=== PATIENT | female | born 1950 | race Caucasian/White ===

== ENCOUNTER 2020-07-07 19:50 | Emergency (ER) | payer OTHER ==
--- NOTE | 2020-07-07 20:03 | PDOC ---
Rapid Medical Evaluation Time Seen by Provider: 07/07/20 19:54 Medical Evaluation: 07/07/20 19:55 I have performed a brief in-person evaluation of this patient The patient presents with a chief complaint of: palpitations x several days, no SOB, CP or syncope. H/o Afib on coumadin (recent INR 2.2), HTN, HLD, pre-DM. Pt also c/o L sided LACY w/ "fuzzy vision" today, since improved. No focal weakness or sensory changes. States HAs are chronic in nature and that LACY today c/w her usual headaches but states she saw her opthalmologist today, who for unclear reasons, sent pt to ER to r/o CVA. Has never been eval by neuro for her HAs but self dx w/ migraine Pertinent physical exam findings:stable, well daniel, in NAD, non-focal I have ordered the following:ekg/labs The patient will proceed to the ED for further evaluation Discharge Disposition - Diagnosis Palpitations - Referrals Referrals: Gladys Stephens MD [Primary Care Provider] - - Patient Instructions - Post Discharge Activity
[2020-07-07 20:08] VITALS: BP 130/77; PULSE 90; TEMP 98.3; BMI 33.6
--- OUTSIDE RECORDS SUMMARY | 2020-07-07 20:26 | XMS ---
:1950 Author Organization [facility] Support Name Relationship Address Phone [facility] [employer] Unavailable [address] [phone] [place] [address] [employer] Unavailable [address] [place] [address] PENELOPE ANDERSON SISTER [address] [phone] [place] [address] Re-disclosure Warning The records that you are about to access may contain information from federally- assisted alcohol or drug abuse programs. If such information is present, then the following federally mandated warning applies: This information has been disclosed to you from records protected by federal confidentiality rules (42 CFR part 2). The federal rules prohibit you from making any further disclosure of this information unless further disclosure is expressly permitted by the written consent of the person to whom it pertains or as otherwise permitted by 42 CFR part 2. A general authorization for the release of medical or other information is NOT sufficient for this purpose. The Federal rules restrict any use of the information to criminally investigate or prosecute any alcohol or drug abuse patient.The records that you are about to access may contain highly sensitive health information, the redisclosure of which is protected by Article 27-F of the [facility] Public Health law. If you continue you may haveaccess to information: Regarding HIV / AIDS; Provided by facilities licensed or operated by the [facility] Office of Mental Health; or Provided by the [facility] Office for People With Developmental Disabilities. If such information is present, then the following [facility] mandated warning applies: This information has been disclosed to you from confidential records which are protected by state law. State law prohibits you from making any further disclosure of this information without the specific written consent of the person to whom it pertains, or as otherwise permitted by law. Any unauthorized further disclosure in violation of state law may result in a fine or fci sentence or both. A general authorization for the release of medical or other information is NOT sufficient authorization for further disclosure. Insurance Providers Payer name Policy type / Policy ID Covered Covered democrat's Policy Plan Coverage type democrat ID relationship to [employer] Information fon[employer]a R [id number]
--- NOTE | 2020-07-07 21:23 | PDOC ---
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 to rule out TIA versus intracranial abnormality with recent history of visual changes not explained on ophthalmological exam During initial evaluation patient who is alert and oriented x4 states that she does not want to stay in the hospital and is refusing CT scan of the brain as well as admission for MRI in the morning Patient states she is afraid of the machines and will follow up with a neurologist as an outpatient She is aware that her evaluation is incomplete and she may have undiagnosed conditions that if untreated promptly can result in complications including but not limited to permanent disability or Discharge - Discharge Information Problems reviewed: Yes Clinical Impression/Diagnosis: Visual disturbance - Follow up/Referral Referrals: Gladys Stephens MD [Primary Care Provider] - - Patient Discharge Instructions - Post Discharge Activity
[2020-07-07 21:27] LABS: BASO % 1.5 % (0-2.0); EOS % 1.2 % (0-4.5); HEMATOCRIT 37.2 % (32.4-45.2); HEMOGLOBIN 12.6 GM/dL (10.7-15.3); LYMPH % 30.1 % (8-40); MCH 34.5 pg (25.7-33.7); MCHC 33.9 g/dl (32.0-36.0); MEAN CELL VOLUME 101.7 fl (80-96); MONO % 5.2 % (3.8-10.2); PLATELET COUNT 187 K/MM3 (134-434); RBC 3.65 M/mm3 (3.60-5.2); RDW 14.8 % (11.6-15.6); WHITE BLOOD COUNT 6.8 K/mm3 (4.0-10.0)
[2020-07-07 22:11] LABS: ALBUMIN 3.5 g/dl (3.4-5.0); ALK PHOS 75 U/L (45-117); BLOOD UREA NITROGEN 22.9 mg/dL (7-18); CALCIUM 9.5 mg/dL (8.5-10.1); CHLORIDE 106 mmol/L (98-107); CO2 30 mmol/L (21-32); GLUCOSE,RANDOM 95 mg/dL (74-106); SGOT/AST 16 U/L (15-37); SGPT/ALT 37 U/L (13-61)
--- NOTE | 2020-07-07 22:16 | PDOC ---
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 Per provider note sent with her: "07/07/20, Dear doctors, left sided headache with di sequibirium, fuzzy vision OS (only) with Left ptosis andd miosis - episode began today- had one other episode few weeks ago. lasted ~1 day. Please r/o vascular phenomena including TIA, etc. Talked with her doctor (Dr. 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 The last time she had one was about ten years ago. Does not take anything for migraine and does not follow with a neurologist. No fevers, chills, chest pain, or shortness of breath. PCP: Dr. Stephens Meter Reader Chief: Dr. Benítez ROS: Constitutional: no fever, no chills HEENT: no throat pain, no dysphagia Cardiovascular: no chest pain, no palpitations Respiratory: no cough, no shortness of breath Gastrointestinal: no abdominal pain, no nausea Genitourinary: no dysuria, no hematuria Musculoskeletal: no myalgia, no arthralgia Skin: no rash, no itching Neurologic: +headache, no weakness Psych: no agitation, no anxiety PE: General: Awake, alert, and fully oriented, in no acute distress Head: No signs of trauma Eyes: EOMI, sclera anicteric ENT: Moist mucus membranes Neck: Normal ROM, supple Lungs: Lungs clear, Normal breath sounds Cardio: Regular rhythm, S1 and S2 present Abdomen: Soft, nontender. No guarding, no rebound, no masses Extremities: Normal range of motion, Distal pulses present Skin: Warm, Dry, normal turgor Neurologic: Cranial nerves II through XII intact. Normal speech, sensation, strength, coordination, and gait. ED Course/MDM: DDX including but not limited to CVA/TIA, anemia, metabolic derangement Labs, EKG, CXR Head CT Admission for r/o stroke 07/07/20 22:14 EKG: rate 83, QTc 467, afib, twi in V2/V3, no prior ekg available for comparison Patient refused to wait for lab work to return. Refused CT head and admission. States she would prefer to follow-up with neurology outpatient. Patient is of sound mind and has capacity to make decisions. Benefits/risks explained to patient and she voiced understanding. Patient decided to leave against medical advice. Signed AMA form. CBC WBC 6.8 K/mm3 (4.0-10.0) 07/07/20 20:20 RBC 3.65 M/mm3 (3.60-5.2) 07/07/20 20:20 Hgb 12.6 GM/dL (10.7-15.3) 07/07/20 20:20 Hct 37.2 % (32.4-45.2) 07/07/20 20:20 MCV 101.7 fl (80-96) H 07/07/20 20:20 MCH 34.5 pg (25.7-33.7) H 07/07/20 20:20 MCHC 33.9 g/dl (32.0-36.0) 07/07/20 20:20 RDW 14.8 % (11.6-15.6) 07/07/20 20:20 Plt Count 187 K/MM3 (134-434) 07/07/20 20:20 MPV 8.0 fl (7.5-11.1) 07/07/20 20:20 Absolute Neuts (auto) 4.2 K/mm3 (1.5-8.0) 07/07/20 20:20 Neutrophils % 62.0 % (42.8-82.8) 07/07/20 20:20 Lymphocytes % 30.1 % (8-40) 07/07/20 20:20 Monocytes % 5.2 % (3.8-10.2) 07/07/20 20:20 Eosinophils % 1.2 % (0-4.5) 07/07/20 20:20 Basophils % 1.5 % (0-2.0) 07/07/20 20:20 Nucleated RBC % 0 % (0-0) 07/07/20 20:20 No leukocytosis or anemia CMP Sodium 139 mmol/L (136-145) 07/07/20 20:20 Potassium 4.0 mmol/L (3.5-5.1) 07/07/20 20:20 Chloride 106 mmol/L (98-107) 07/07/20 20:20 Carbon Dioxide 30 mmol/L (21-32) 07/07/20 20:20 Anion Gap 3 MMOL/L (8-16) L 07/07/20 20:20 BUN 22.9 mg/dL (7-18) H 07/07/20 20:20 Creatinine 1.1 mg/dL (0.55-1.3) 07/07/20 20:20 Est GFR (CKD-EPI)AfAm 58.09 07/07/20 20:20 Est GFR (CKD-EPI)NonAf 50.12 07/07/20 20:20 Random Glucose 95 mg/dL (74-106) 07/07/20 20:20 Calcium 9.5 mg/dL (8.5-10.1) 07/07/20 20:20 Total Bilirubin 1.0 mg/dL (0.2-1) 07/07/20 20:20 AST 16 U/L (15-37) 07/07/20 20:20 ALT 37 U/L (13-61) 07/07/20 20:20 Alkaline Phosphatase 75 U/L (45-117) 07/07/20 20:20 Creatine Kinase 83 U/L (26-192) 07/07/20 20:20 Troponin I < 0.02 ng/ml (0.00-0.05) 07/07/20 20:20 Total Protein 8.8 g/dl (6.4-8.2) H 07/07/20 20:20 Albumin 3.5 g/dl (3.4-5.0) 07/07/20 20:20 Electrolytes unremarkable Cr normal No transaminitis Tpn undetectable 07/08/20 02:48 Past History - Medical History Cardiac Disorders: Yes (AFIB) COPD: No HTN: Yes Hypercholesterolemia: Yes - Psycho-Social/Smoking History Smoking History: Never smoked - Substance Abuse Hx (Audit-C & DAST Scrn) How often the patient has a drink containing alcohol: Never Score: In Men: 4 or > Positive; In Women: 3 or > Positive: 0 Screen Result (Pos requires Nsg. Audit-10AR): Negative *Physical Exam - Vital Signs Last Vital Signs Temp Pulse Resp BP Pulse Ox 98.3 F 90 20 130/77 97 07/07/20 19:56 07/07/20 19:56 07/07/20 19:56 07/07/20 19:56 07/07/20 19:56 ED Treatment Course - LABORATORY CBC & Chemistry Diagram: 07/07/20 20:20 07/07/20 20:20 - ADDITIONAL ORDERS Additional order review: Laboratory Results 07/07/20 20:20 Potassium 4.0 Chloride 106 Carbon Dioxide 30 BUN 22.9 H Random Glucose 95 Calcium 9.5 Total Bilirubin 1.0 AST 16 ALT 37 Alkaline Phosphatase 75 Albumin 3.5 07/07/20 20:20 RBC 3.65 MCV 101.7 H MCHC 33.9 RDW 14.8 MPV 8.0 Neutrophils % 62.0 Lymphocytes % 30.1 Monocytes % 5.2 Eosinophils % 1.2 Basophils % 1.5 - RADIOLOGY Radiology Studies Ordered: Category Date Time Status HEAD CT WITHOUT CONTRAST [CT] Stat CT Scan 07/07/20 21:20 Ordered CHEST X-RAY PORTABLE* [RAD] Stat Radiology 07/07/20 21:20 Ordered Discharge - Discharge Information Problems reviewed: Yes Clinical Impression/Diagnosis: Visual disturbance, Vision changes, Left against medical advice Condition: Guarded Disposition: AGAINST MEDICAL ADVICE - Follow up/Referral Referrals: Gladys Stephens MD [Primary Care Provider] - - Patient Discharge Instructions Additional Instructions: As discussed you may have undiagnosed illness or medical diagnosis that if left untreated can lead to multiple complications including, but not limited to permanent disability and . Should you reconsider you should return to the emergency department for evaluation. - Post Discharge Activity
[2020-07-07 22:20] LABS: ANION GAP 3 MMOL/L (8-16); CREATININE 1.1 mg/dL (0.55-1.3); SODIUM 139 mmol/L (136-145); TOT PROT 8.8 g/dl (6.4-8.2)
--- NOTE | 2020-07-08 09:04 | EKG ---
Test Reason : Blood Pressure : / mmHG Vent. Rate : 083 BPM Atrial Rate : 075 BPM P-R Int : 000 ms QRS Dur : 082 ms QT Int : 398 ms P-R-T Axes : 000 074 035 degrees QTc Int : 467 ms ATRIAL FIBRILLATION T WAVE ABNORMALITY, CONSIDER ANTERIOR ISCHEMIA ABNORMAL ECG WHEN COMPARED WITH ECG OF 27-MAY-2010 22:54, T WAVE INVERSION NOW EVIDENT IN ANTERIOR LEADS Confirmed by MD TOMMY, BERNARD ([id number]) on 07/08/2020 9:04:28 AM Referred By: Confirmed By:BERNARD SANDERS MD
== END 2020-07-07 22:52 | disposition left against medical advice (07) ==
LOC: JER 19:50
DX: H53.8 Other visual disturbances (principal); R00.2 Palpitations
CPT/HCPCS: 36415; 80053; 82550; 84484; 85025; 93005; 93010; 99282-25

== ENCOUNTER 2020-12-27 22:01 | Inpatient (IN) | payer OTHER ==
[2020-12-27 22:19] VITALS: BMI 30.1
[2020-12-27] MEDS ORDERED: SODIUM CHLORIDE 0.9% 500 ML INFUS.BAG IV ONE (22:43)
[2020-12-27 22:59] LABS: BASO % 0.9 % (0-2.0); EOS % 1.4 % (0-4.5); HEMATOCRIT 31.1 % (32.4-45.2); HEMOGLOBIN 10.7 GM/dL (10.7-15.3); LYMPH % 27.9 % (8-40); MCH 35.6 pg (25.7-33.7); MCHC 34.4 g/dl (32.0-36.0); MEAN CELL VOLUME 103.5 fl (80-96); MEAN PLT VOLUME 8.1 fl (7.5-11.1); NEUT % 57.8 % (42.8-82.8); PLATELET COUNT 113 K/MM3 (134-434); RBC 3.01 M/mm3 (3.60-5.2); RDW 16.9 % (11.6-15.6); WHITE BLOOD COUNT 7.2 K/mm3 (4.0-10.0)
[2020-12-27 23:12] LABS: ACTIVATED PTT 59.1 SECONDS (25.2-36.5)
[2020-12-27 23:22] LABS: CHLORIDE 98 mmol/L (98-107); SODIUM 135 mmol/L (136-145)
[2020-12-27 23:25] LABS: ALBUMIN 2.2 g/dl (3.4-5.0); ANION GAP 7 MMOL/L (8-16); BLOOD UREA NITROGEN 52.9 mg/dL (7-18); CO2 31 mmol/L (21-32); GLUCOSE,RANDOM 88 mg/dL (74-106); MAGNESIUM 2.1 mg/dL (1.8-2.4)
[2020-12-27 23:28] LABS: CREATININE 3.7 mg/dL (0.55-1.3); PHOSPHOROUS 5.7 mg/dL (2.5-4.9); SGOT/AST 49 U/L (15-37); SGPT/ALT 21 U/L (13-61)
[2020-12-27 23:29] LABS: BILIRUBIN,TOTAL 0.9 mg/dL (0.2-1)
[2020-12-27 23:30] LABS: TOT PROT 10.9 g/dl (6.4-8.2)
[2020-12-27 23:31] LABS: ALK PHOS 52 U/L (45-117)
[2020-12-27 23:39] LABS: PROTHROMBIN TIME (PATIENT) 122.3 SEC (9.7-13.0)
[2020-12-27 23:40] LABS: INR 10.65 (0.83-1.09)
[2020-12-27] MEDS ORDERED: PHYTONADIONE 5 MG TABLET PO ONE (23:43)
[2020-12-27] MEDS ORDERED: LACTATED RINGERS SOLUTION 1,000 ML/1,000 ML INFUS.BAG IV SCH (23:45)
[2020-12-27 23:51] LABS: ANISOCYTOSIS 1+; OVALOCYTE 1+; PLATELET ESTIMATE DECREASED
[2020-12-27] MEDS ORDERED: PHYTONADIONE 5 MG TABLET ONE (23:55)
[2020-12-28 00:10] LABS: CALCIUM 16.3 mg/dL (8.5-10.1)
[2020-12-28 01:21] LABS: LIPASE 280 U/L (73-393)
[2020-12-28] MEDS: LACTATED RINGERS SOLUTION 1,000 ML/1,000 ML INFUS.BAG IV SCH (01:31)
[2020-12-28] MEDS ORDERED: CALCITONIN - SALMON SYNTHETIC 400 UNIT/2 ML VIAL IM ONE (01:57)
[2020-12-28 02:02] LABS: EPI CELLS 22 /uL (0-25.1); HYALINE CASTS 2 /uL (0-3.1); URINE APPEARANCE CLOUDY; URINE BACTERIA 19 /uL (0-1359); URINE BILIRUBIN NEGATIVE (NEGATIVE); URINE COLOR YELLOW; URINE GLUCOSE (UA) NEGATIVE (NEGATIVE); URINE KETONE NEGATIVE (NEGATIVE); URINE LEUK ESTERASE NEGATIVE (NEGATIVE); URINE NITRITE NEGATIVE (NEGATIVE); URINE PROTEIN 1+ (NEGATIVE); URINE RBC 4 /uL (0-23.9); URINE UROBILINOGEN 0.2 mg/dL (0.2-1.0); URINE WBC 44 /uL (0-25.8)
[2020-12-28] MEDS ORDERED: ACETAMINOPHEN 325 MG TABLET (FP) PO PRN (02:52)
[2020-12-28 02:57] LABS: ALBUMIN 1.9 g/dl (3.4-5.0); BLOOD UREA NITROGEN 49.1 mg/dL (7-18); MAGNESIUM 1.8 mg/dL (1.8-2.4)
[2020-12-28 03:00] LABS: CREATININE 3.4 mg/dL (0.55-1.3); PHOSPHOROUS 5.4 mg/dL (2.5-4.9)
[2020-12-28 03:01] LABS: BILIRUBIN,TOTAL 0.8 mg/dL (0.2-1); TOT PROT 9.6 g/dl (6.4-8.2)
[2020-12-28 03:13] LABS: CALCIUM 15.3 mg/dL (8.5-10.1)
[2020-12-28 03:28] LABS: PROTHROMBIN TIME (PATIENT) 127.8 SEC (9.7-13.0)
[2020-12-28 03:29] LABS: INR 11.5 (0.83-1.09)
[2020-12-28] MEDS: LACTATED RINGERS SOLUTION 1,000 ML IV SCH ×2 (03:56→12:43)
[2020-12-28 07:59] LABS: HEMATOCRIT 27.2 % (32.4-45.2); HEMOGLOBIN 9.4 GM/dL (10.7-15.3); MCH 35.8 pg (25.7-33.7); MCHC 34.5 g/dl (32.0-36.0); MEAN CELL VOLUME 103.8 fl (80-96); MEAN PLT VOLUME 7.5 fl (7.5-11.1); PLATELET COUNT 103 K/MM3 (134-434); RBC 2.62 M/mm3 (3.60-5.2); RDW 17.1 % (11.6-15.6); WHITE BLOOD COUNT 7.1 K/mm3 (4.0-10.0)
[2020-12-28 08:50] LABS: CHLORIDE 101 mmol/L (98-107); SODIUM 137 mmol/L (136-145)
[2020-12-28 08:53] LABS: ANION GAP 7 MMOL/L (8-16); BLOOD UREA NITROGEN 47.6 mg/dL (7-18); CO2 29 mmol/L (21-32); GLUCOSE,RANDOM 93 mg/dL (74-106); MAGNESIUM 1.9 mg/dL (1.8-2.4)
[2020-12-28 08:56] LABS: CREATININE 3.3 mg/dL (0.55-1.3); SGOT/AST 31 U/L (15-37); SGPT/ALT 19 U/L (13-61)
[2020-12-28 08:57] LABS: BILIRUBIN,TOTAL 0.8 mg/dL (0.2-1); PHOSPHOROUS 5.3 mg/dL (2.5-4.9)
[2020-12-28 08:58] LABS: TOT PROT 9.9 g/dl (6.4-8.2)
[2020-12-28 08:59] LABS: ALK PHOS 51 U/L (45-117)
[2020-12-28 09:26] LABS: CALCIUM 15.6 mg/dL (8.5-10.1)
[2020-12-28 09:36] LABS: INR 9.5 (0.83-1.09)
[2020-12-28 09:38] LABS: PROTHROMBIN TIME (PATIENT) 107.7 SEC (9.7-13.0)
[2020-12-28] MEDS: MORPHINE SULFATE 2 MG/ML VIAL IVPUSH PRN ×2 (10:41→14:52)
[2020-12-28] MEDS ORDERED: POTASSIUM CHLORIDE ORAL LIQUID 20 MEQ/15 ML PO ONE ×2 (12:30→16:03)
[2020-12-28] MEDS ORDERED: DENOSUMAB 120 MG/1.7 ML VIAL SQ ONE (13:16)
[2020-12-28] MEDS ORDERED: DOCUSATE SODIUM 100 MG CAPSULE (FP) PO PRN (14:04)
[2020-12-28] MEDS ORDERED: SENNOSIDES 8.6MG TABLET (FP) PO PRN (14:04)
[2020-12-28] MEDS ORDERED: DOCUSATE SODIUM 100 MG CAPSULE (FP) PO ONE (14:05)
[2020-12-28] MEDS ORDERED: SENNOSIDES 8.6MG TABLET (FP) PO ONE (14:06)
[2020-12-28 15:39] LABS: ALBUMIN 1.9 g/dl (3.4-5.0); BLOOD UREA NITROGEN 47.5 mg/dL (7-18)
[2020-12-28 15:42] LABS: CREATININE 3.3 mg/dL (0.55-1.3)
[2020-12-28 15:44] LABS: CALCIUM 15.6 mg/dL (8.5-10.1)
[2020-12-28] MEDS: CALCITONIN - SALMON SYNTHETIC 400 UNIT/2 ML VIAL IM SCH ×2 (22:11)
[2020-12-29] MEDS: MORPHINE SULFATE 2 MG/ML VIAL IVPUSH PRN (03:21)
[2020-12-29] MEDS: LACTATED RINGERS SOLUTION 1,000 ML/1,000 ML INFUS.BAG IV SCH (04:08)
[2020-12-29] MEDS: LACTATED RINGERS SOLUTION 1,000 ML IV SCH (04:14)
[2020-12-29 08:22] LABS: HEMATOCRIT 24.5 % (32.4-45.2); HEMOGLOBIN 8.4 GM/dL (10.7-15.3); MCH 35.7 pg (25.7-33.7); MCHC 34.5 g/dl (32.0-36.0); MEAN CELL VOLUME 103.7 fl (80-96); MEAN PLT VOLUME 7.5 fl (7.5-11.1); PLATELET COUNT 92 K/MM3 (134-434); RBC 2.36 M/mm3 (3.60-5.2); RDW 16.9 % (11.6-15.6); WHITE BLOOD COUNT 6.3 K/mm3 (4.0-10.0)
[2020-12-29 08:48] LABS: ALBUMIN 1.7 g/dl (3.4-5.0)
[2020-12-29 08:51] LABS: CREATININE 3.4 mg/dL (0.55-1.3)
[2020-12-29 08:52] LABS: BILIRUBIN,TOTAL 0.6 mg/dL (0.2-1); TOT PROT 9.3 g/dl (6.4-8.2)
[2020-12-29] MEDS: ATORVASTATIN CA 10 MG TABLET (FP) PO SCH (10:45)
[2020-12-29 11:08] LABS: URIC ACID 14.8 mg/dL (2.6-7.2)
[2020-12-29] MEDS ORDERED: PHYTONADIONE 5 MG TABLET PO ONE (11:15)
[2020-12-29] MEDS ORDERED: POTASSIUM CHLORIDE TABS 20 MEQ TABLET.ER (FP) PO ONE (11:15)
[2020-12-29] MEDS: CALCITONIN - SALMON SYNTHETIC 400 UNIT/2 ML VIAL IM SCH ×3 (15:23→22:29)
[2020-12-29] MEDS ORDERED: RASBURICASE 7.5 MG in SODIUM CHLORIDE 50 ML IVPB ONE (15:30)
[2020-12-29] MEDS: SODIUM CHLORIDE 0.9%/KCL 20 MEQ/1,000 ML INFUS.BAG IV SCH (22:36)
[2020-12-30] MEDS: CALCITONIN - SALMON SYNTHETIC 400 UNIT/2 ML VIAL IM SCH ×3 (06:19→22:04)
[2020-12-30] MEDS: MORPHINE SULFATE 2 MG/ML VIAL IVPUSH PRN (07:57)
[2020-12-30 08:09] LABS: BASO % 0.5 % (0-2.0); EOS % 1.1 % (0-4.5); HEMATOCRIT 23.2 % (32.4-45.2); HEMOGLOBIN 8.1 GM/dL (10.7-15.3); LYMPH % 20.6 % (8-40); MCH 36.3 pg (25.7-33.7); MCHC 34.8 g/dl (32.0-36.0); MEAN CELL VOLUME 104.2 fl (80-96); MEAN PLT VOLUME 7.7 fl (7.5-11.1); MONO % 11.7 % (3.8-10.2); NEUT % 66.1 % (42.8-82.8); PLATELET COUNT 83 K/MM3 (134-434); RBC 2.22 M/mm3 (3.60-5.2); RDW 16.9 % (11.6-15.6)
[2020-12-30 08:13] LABS: INR 2.52 (0.83-1.09); PROTHROMBIN TIME (PATIENT) 29.7 SEC (9.7-13.0)
[2020-12-30 08:32] LABS: ALBUMIN 1.7 g/dl (3.4-5.0); BLOOD UREA NITROGEN 54.6 mg/dL (7-18); MAGNESIUM 1.7 mg/dL (1.8-2.4)
[2020-12-30 08:35] LABS: CREATININE 3.9 mg/dL (0.55-1.3); PHOSPHOROUS 6.2 mg/dL (2.5-4.9)
[2020-12-30 08:36] LABS: BILIRUBIN,TOTAL 0.5 mg/dL (0.2-1); TOT PROT 9.4 g/dl (6.4-8.2)
[2020-12-30 09:15] LABS: CALCIUM 14.7 mg/dL (8.5-10.1)
[2020-12-30 09:22] LABS: ANISOCYTOSIS 1+; MACROCYTOSIS 1+; PLATELET ESTIMATE DECREASED
[2020-12-30] MEDS: ATORVASTATIN CA 10 MG TABLET (FP) PO SCH (09:56)
[2020-12-30] MEDS: DEXAMETHASONE SOD PHOSPHATE 4 MG/1 ML VIAL IVPUSH SCH ×2 (09:58→22:04)
[2020-12-30] MEDS ORDERED: MAGNESIUM SULF 50% (8.12 MEQ/2 ML-1 GM VIAL) IVPB ONE (11:11)
[2020-12-30] MEDS: SODIUM CHLORIDE 0.9%/KCL 20 MEQ/1,000 ML INFUS.BAG IV SCH (22:04)
[2020-12-31] MEDS: CALCITONIN - SALMON SYNTHETIC 400 UNIT/2 ML VIAL IM SCH (05:47)
[2020-12-31] MEDS: DEXAMETHASONE SOD PHOSPHATE 4 MG/1 ML VIAL IVPUSH SCH ×2 (09:26→22:37)
[2020-12-31] MEDS: ATORVASTATIN CA 10 MG TABLET (FP) PO SCH (09:26)
[2020-12-31 11:31] LABS: BASO % 0.4 % (0-2.0); EOS % 0.3 % (0-4.5); HEMATOCRIT 24.1 % (32.4-45.2); HEMOGLOBIN 8.1 GM/dL (10.7-15.3); LYMPH % 19.4 % (8-40); MCH 35.7 pg (25.7-33.7); MCHC 33.7 g/dl (32.0-36.0); MEAN CELL VOLUME 106.1 fl (80-96); MEAN PLT VOLUME 8.2 fl (7.5-11.1); MONO % 12.1 % (3.8-10.2); NEUT % 67.8 % (42.8-82.8); PLATELET COUNT 84 K/MM3 (134-434); RBC 2.27 M/mm3 (3.60-5.2); RDW 17.3 % (11.6-15.6); WHITE BLOOD COUNT 6.6 K/mm3 (4.0-10.0)
[2020-12-31 11:36] LABS: INR 1.78 (0.83-1.09); PROTHROMBIN TIME (PATIENT) 21.5 SEC (9.7-13.0)
[2020-12-31 11:46] LABS: CHLORIDE 111 mmol/L (98-107); SODIUM 141 mmol/L (136-145)
[2020-12-31 11:50] LABS: ALBUMIN 1.7 g/dl (3.4-5.0); ANION GAP 7 MMOL/L (8-16); BLOOD UREA NITROGEN 70.8 mg/dL (7-18); CO2 23 mmol/L (21-32); GLUCOSE,RANDOM 141 mg/dL (74-106)
[2020-12-31 11:56] LABS: MAGNESIUM 2.5 mg/dL (1.8-2.4); PHOSPHOROUS 6.3 mg/dL (2.5-4.9)
[2020-12-31 11:57] LABS: ALK PHOS 54 U/L (45-117); BILIRUBIN,TOTAL 1.1 mg/dL (0.2-1); CREATININE 4.5 mg/dL (0.55-1.3); IRON SERUM 127 ug/dL (50-175); SGOT/AST 31 U/L (15-37); SGPT/ALT 17 U/L (13-61); TOT PROT 9.9 g/dl (6.4-8.2); TOTAL IRON BINDING CAPACITY 155 ug/dL (250-450)
[2020-12-31 12:04] LABS: URIC ACID < 0.2 mg/dL (2.6-7.2)
[2020-12-31] MEDS ORDERED: SODIUM CHLORIDE 250 ML IV PRN ×2 (12:04→17:32)
[2020-12-31 12:10] LABS: ANISOCYTOSIS 2+; MACROCYTOSIS 2+; PLATELET ESTIMATE DECREASED
[2020-12-31 12:21] LABS: CALCIUM 14.8 mg/dL (8.5-10.1)
[2020-12-31] MEDS: SODIUM CHLORIDE 0.9%/KCL 20 MEQ/1,000 ML INFUS.BAG IV SCH (17:45)
[2020-12-31] MEDS: ALBUMIN HUMAN 25% 12.5 GM/50 ML VIAL IVPB SCH (18:52)
[2020-12-31] MEDS ORDERED: metoPROLOL SUCCINATE 25 MG TAB.SR.24H (FP) PO ONE (23:53)
[2021-01-01 03:15] LABS: BASO % 0.7 % (0-2.0); EOS % 0.2 % (0-4.5); HEMATOCRIT 19.7 % (32.4-45.2); LYMPH % 22.7 % (8-40); MCHC 32.8 g/dl (32.0-36.0); MEAN CELL VOLUME 106.8 fl (80-96); MONO % 23.5 % (3.8-10.2); NEUT % 52.9 % (42.8-82.8); PLATELET COUNT 91 K/MM3 (134-434); RBC 1.85 M/mm3 (3.60-5.2); RDW 16.9 % (11.6-15.6); WHITE BLOOD COUNT 9.5 K/mm3 (4.0-10.0)
[2021-01-01 03:16] LABS: HEMOGLOBIN 6.5 GM/dL (10.7-15.3)
[2021-01-01 03:22] LABS: INR 1.83 (0.83-1.09); PROTHROMBIN TIME (PATIENT) 22.1 SEC (9.7-13.0)
[2021-01-01 03:25] LABS: ACTIVATED PTT 22.4 SECONDS (25.2-36.5)
[2021-01-01 03:33] LABS: ALBUMIN 1.4 g/dl (3.4-5.0); BLOOD UREA NITROGEN 51.7 mg/dL (7-18); CALCIUM 12.9 mg/dL (8.5-10.1)
[2021-01-01 03:37] LABS: CREATININE 3.5 mg/dL (0.55-1.3)
[2021-01-01 03:38] LABS: BILIRUBIN,TOTAL 0.6 mg/dL (0.2-1); TOT PROT 8.4 g/dl (6.4-8.2)
[2021-01-01 06:29] LABS: ANISOCYTOSIS 2+; MACROCYTOSIS 0; OVALOCYTE 1+; PLATELET ESTIMATE DECREASED
[2021-01-01] MEDS ORDERED: METOPROLOL TARTRATE 5 MG/5 ML VIAL IVPUSH ONE (09:40)
[2021-01-01] MEDS: DEXAMETHASONE SOD PHOSPHATE 10 MG/1 ML VIAL IVPB SCH (10:14)
[2021-01-01] MEDS: PANTOPRAZOLE SODIUM 40 MG VIAL IVPB SCH (10:17)
[2021-01-01] MEDS: ATORVASTATIN CA 10 MG TABLET (FP) PO SCH (10:17)
[2021-01-01 13:09] LABS: ALBUMIN % 8.3 % (.); ALPHA-1 FOR UPE 1.5 % (.); TOTAL PROTEIN, URINE 104.2 mg/dL (Not Estab.)
[2021-01-01 16:03] LABS: BASO % 0.5 % (0-2.0); EOS % 0.2 % (0-4.5); HEMATOCRIT 24.4 % (32.4-45.2); HEMOGLOBIN 8.2 GM/dL (10.7-15.3); LYMPH % 18.9 % (8-40); MCH 32.9 pg (25.7-33.7); MCHC 33.7 g/dl (32.0-36.0); MEAN CELL VOLUME 97.6 fl (80-96); MEAN PLT VOLUME 7.8 fl (7.5-11.1); MONO % 21.9 % (3.8-10.2); NEUT % 58.5 % (42.8-82.8); PLATELET COUNT 77 K/MM3 (134-434); RDW 21.4 % (11.6-15.6); WHITE BLOOD COUNT 9.7 K/mm3 (4.0-10.0)
[2021-01-01 17:20] LABS: ANISOCYTOSIS 3+; MACROCYTOSIS 1+; PLATELET ESTIMATE DECREASED; TARGET CELLS 1+
[2021-01-02] MEDS ORDERED: SENNOSIDES 8.6MG TABLET (FP) PO PRN (07:40)
[2021-01-02] MEDS ORDERED: DOCUSATE SODIUM 100 MG CAPSULE (FP) PO PRN (07:40)
[2021-01-02 07:54] LABS: BASO % 0.4 % (0-2.0); EOS % 0.2 % (0-4.5); HEMATOCRIT 20.7 % (32.4-45.2); HEMOGLOBIN 7.4 GM/dL (10.7-15.3); LYMPH % 21.6 % (8-40); MCH 34.3 pg (25.7-33.7); MCHC 35.8 g/dl (32.0-36.0); MEAN CELL VOLUME 95.8 fl (80-96); MEAN PLT VOLUME 7.9 fl (7.5-11.1); MONO % 12.2 % (3.8-10.2); NEUT % 65.6 % (42.8-82.8); PLATELET COUNT 65 K/MM3 (134-434); RBC 2.16 M/mm3 (3.60-5.2); WHITE BLOOD COUNT 8.1 K/mm3 (4.0-10.0)
[2021-01-02 07:55] LABS: INR 1.65 (0.83-1.09); PROTHROMBIN TIME (PATIENT) 19.7 SEC (9.7-13.0)
[2021-01-02 08:29] LABS: ALBUMIN 1.5 g/dl (3.4-5.0); BLOOD UREA NITROGEN 43.9 mg/dL (7-18); CALCIUM 12.8 mg/dL (8.5-10.1)
[2021-01-02 08:32] LABS: CREATININE 3.3 mg/dL (0.55-1.3); PHOSPHOROUS 5.3 mg/dL (2.5-4.9); URIC ACID 1.3 mg/dL (2.6-7.2)
[2021-01-02 08:34] LABS: BILIRUBIN,TOTAL 1.1 mg/dL (0.2-1); TOT PROT 8.6 g/dl (6.4-8.2)
[2021-01-02] MEDS: PANTOPRAZOLE SODIUM 40 MG VIAL IVPB SCH (10:08)
[2021-01-02] MEDS: DEXAMETHASONE SOD PHOSPHATE 10 MG/1 ML VIAL IVPB SCH (10:09)
[2021-01-02 10:50] LABS: ANISOCYTOSIS 1+; MACROCYTOSIS 0; PLATELET ESTIMATE DECREASED; TARGET CELLS 1+
[2021-01-02] MEDS ORDERED: HEPARIN NA (PORCINE) 5,000 UNITS/ML 1ML VIAL IVPUSH PRN (19:50)
[2021-01-02] MEDS: ATORVASTATIN CA 10 MG TABLET (FP) PO SCH (21:56)
[2021-01-02] MEDS: HEPARIN INFUSION - 25,000 UNITS/500 ML INFUS.BAG IVPB SCH (22:41)
[2021-01-03 06:30] LABS: BASO % 0.4 % (0-2.0); EOS % 0.2 % (0-4.5); LYMPH % 19.1 % (8-40); MCH 33.8 pg (25.7-33.7); MCHC 34.9 g/dl (32.0-36.0); MEAN CELL VOLUME 96.9 fl (80-96); MEAN PLT VOLUME 8.1 fl (7.5-11.1); MONO % 11.6 % (3.8-10.2); NEUT % 68.7 % (42.8-82.8); PLATELET COUNT 72 K/MM3 (134-434); RBC 2.06 M/mm3 (3.60-5.2); RDW 20.6 % (11.6-15.6); WHITE BLOOD COUNT 11.1 K/mm3 (4.0-10.0)
[2021-01-03 06:47] LABS: INR 1.51 (0.83-1.09); PROTHROMBIN TIME (PATIENT) 18.4 SEC (9.7-13.0)
[2021-01-03 06:50] LABS: ACTIVATED PTT 45.4 SECONDS (25.2-36.5)
[2021-01-03] MEDS: HEPARIN NA (PORCINE) 5,000 UNITS/ML 1ML VIAL IVPUSH PRN ×2 (06:59→14:51)
[2021-01-03 07:31] LABS: ALBUMIN 1.6 g/dl (3.4-5.0); BLOOD UREA NITROGEN 66.4 mg/dL (7-18); CALCIUM 13.3 mg/dL (8.5-10.1); MAGNESIUM 2.2 mg/dL (1.8-2.4)
[2021-01-03 07:33] LABS: CREATININE 4.7 mg/dL (0.55-1.3)
[2021-01-03 07:34] LABS: PHOSPHOROUS 7.2 mg/dL (2.5-4.9)
[2021-01-03 07:35] LABS: BILIRUBIN,TOTAL 0.7 mg/dL (0.2-1); TOT PROT 8.8 g/dl (6.4-8.2)
[2021-01-03 09:20] LABS: ANISOCYTOSIS 1+; MACROCYTOSIS 1+; PLATELET ESTIMATE DECREASED
[2021-01-03] MEDS: PANTOPRAZOLE SODIUM 40 MG VIAL IVPB SCH (10:29)
[2021-01-03] MEDS: DEXAMETHASONE SOD PHOSPHATE 10 MG/1 ML VIAL IVPB SCH (10:29)
[2021-01-03] MEDS: HEPARIN INFUSION - 25,000 UNITS/500 ML INFUS.BAG IVPB SCH (22:19)
[2021-01-03] MEDS: ATORVASTATIN CA 10 MG TABLET (FP) PO SCH (22:19)
[2021-01-04 08:04] LABS: BASO % 0.3 % (0-2.0); EOS % 0.4 % (0-4.5); LYMPH % 17.8 % (8-40); MCH 33.5 pg (25.7-33.7); MCHC 33.9 g/dl (32.0-36.0); MEAN CELL VOLUME 98.9 fl (80-96); MEAN PLT VOLUME 8.4 fl (7.5-11.1); MONO % 18.8 % (3.8-10.2); NEUT % 62.7 % (42.8-82.8); PLATELET COUNT 81 K/MM3 (134-434); RBC 1.82 M/mm3 (3.60-5.2); RDW 19.7 % (11.6-15.6); WHITE BLOOD COUNT 17.1 K/mm3 (4.0-10.0)
[2021-01-04 08:11] LABS: BLOOD UREA NITROGEN 89.4 mg/dL (7-18); CALCIUM 13.1 mg/dL (8.5-10.1); MAGNESIUM 2.3 mg/dL (1.8-2.4)
[2021-01-04 08:12] LABS: ALBUMIN 1.6 g/dl (3.4-5.0)
[2021-01-04 08:13] LABS: URIC ACID 3.9 mg/dL (2.6-7.2)
[2021-01-04 08:14] LABS: CREATININE 5.9 mg/dL (0.55-1.3)
[2021-01-04 08:15] LABS: PHOSPHOROUS 7.6 mg/dL (2.5-4.9)
[2021-01-04 08:16] LABS: TOT PROT 8.9 g/dl (6.4-8.2)
[2021-01-04 08:17] LABS: BILIRUBIN,TOTAL 0.6 mg/dL (0.2-1)
[2021-01-04 08:23] LABS: HEMOGLOBIN 6.1 GM/dL (10.7-15.3)
[2021-01-04] MEDS: DEXAMETHASONE SOD PHOSPHATE 10 MG/1 ML VIAL IVPB SCH (12:37)
[2021-01-04] MEDS: PANTOPRAZOLE SODIUM 40 MG VIAL IVPB SCH (12:38)
[2021-01-04 14:00] LABS: ANISOCYTOSIS 1+; MACROCYTOSIS 0; PLATELET ESTIMATE DECREASED
[2021-01-04] MEDS ORDERED: SODIUM CHLORIDE 250 ML IV PRN (17:27)
[2021-01-04 20:53] LABS: MCH 33.8 pg (25.7-33.7); MCHC 35.2 g/dl (32.0-36.0); MEAN PLT VOLUME 12.3 fl (7.5-11.1); RBC 1.98 M/mm3 (3.60-5.2); RDW 18.5 % (11.6-15.6); WHITE BLOOD COUNT 12.4 K/mm3 (4.0-10.0)
[2021-01-04 20:56] LABS: HEMOGLOBIN 6.7 GM/dL (10.7-15.3)
[2021-01-04] MEDS: ATORVASTATIN CA 10 MG TABLET (FP) PO SCH (21:37)
[2021-01-04 23:09] LABS: PLATELET COUNT 25 K/MM3 (134-434)
[2021-01-05 01:16] LABS: INR 1.67 (0.83-1.09); PROTHROMBIN TIME (PATIENT) 20.2 SEC (9.7-13.0)
[2021-01-05 01:18] LABS: ACTIVATED PTT 30.3 SECONDS (25.2-36.5)
[2021-01-05 07:20] LABS: HEMATOCRIT 23.1 % (32.4-45.2); MCH 32.5 pg (25.7-33.7); MCHC 34.7 g/dl (32.0-36.0); MEAN CELL VOLUME 93.7 fl (80-96); MEAN PLT VOLUME 7.9 fl (7.5-11.1); PLATELET COUNT 73 K/MM3 (134-434); RBC 2.47 M/mm3 (3.60-5.2); RDW 18.6 % (11.6-15.6); WHITE BLOOD COUNT 13.9 K/mm3 (4.0-10.0)
[2021-01-05 07:42] LABS: ALBUMIN 1.6 g/dl (3.4-5.0)
[2021-01-05 07:43] LABS: MAGNESIUM 2.2 mg/dL (1.8-2.4)
[2021-01-05 07:45] LABS: PHOSPHOROUS 5.8 mg/dL (2.5-4.9); URIC ACID 3.4 mg/dL (2.6-7.2)
[2021-01-05 07:46] LABS: CREATININE 4.1 mg/dL (0.55-1.3)
[2021-01-05 07:47] LABS: BILIRUBIN,TOTAL 0.8 mg/dL (0.2-1); TOT PROT 8.9 g/dl (6.4-8.2)
[2021-01-05 08:08] LABS: BLOOD UREA NITROGEN 53.4 mg/dL (7-18); CALCIUM 10.8 mg/dL (8.5-10.1)
[2021-01-05] MEDS: PANTOPRAZOLE SODIUM 40 MG VIAL IVPB SCH (09:48)
[2021-01-05] MEDS: DEXAMETHASONE SOD PHOSPHATE 10 MG/1 ML VIAL IVPB SCH (09:49)
[2021-01-05] MEDS: ATORVASTATIN CA 10 MG TABLET (FP) PO SCH (21:36)
[2021-01-06 08:11] LABS: BASO % 0.3 % (0-2.0); EOS % 0.2 % (0-4.5); HEMATOCRIT 20.8 % (32.4-45.2); HEMOGLOBIN 7.2 GM/dL (10.7-15.3); LYMPH % 15.6 % (8-40); MCH 32.7 pg (25.7-33.7); MCHC 34.5 g/dl (32.0-36.0); MEAN CELL VOLUME 94.7 fl (80-96); MEAN PLT VOLUME 7.9 fl (7.5-11.1); MONO % 10.9 % (3.8-10.2); PLATELET COUNT 65 K/MM3 (134-434); RDW 18.6 % (11.6-15.6); WHITE BLOOD COUNT 12.2 K/mm3 (4.0-10.0)
[2021-01-06 08:42] LABS: ALBUMIN 1.6 g/dl (3.4-5.0)
[2021-01-06 08:43] LABS: BLOOD UREA NITROGEN 75.3 mg/dL (7-18); CALCIUM 10.9 mg/dL (8.5-10.1); MAGNESIUM 2.2 mg/dL (1.8-2.4)
[2021-01-06 08:45] LABS: CREATININE 5.5 mg/dL (0.55-1.3)
[2021-01-06 08:46] LABS: PHOSPHOROUS 7.1 mg/dL (2.5-4.9); TOT PROT 8.6 g/dl (6.4-8.2)
[2021-01-06 08:48] LABS: BILIRUBIN,TOTAL 0.5 mg/dL (0.2-1)
[2021-01-06] MEDS: PANTOPRAZOLE SODIUM 40 MG VIAL IVPB SCH (10:08)
[2021-01-06 10:55] LABS: ANISOCYTOSIS 1+; MACROCYTOSIS 0; PLATELET ESTIMATE DECREASED
[2021-01-06 12:04] LABS: INR 1.45 (0.83-1.09); PROTHROMBIN TIME (PATIENT) 17.7 SEC (9.7-13.0)
[2021-01-06] MEDS ORDERED: SODIUM CHLORIDE 250 ML IV PRN (13:51)
[2021-01-06] MEDS: ATORVASTATIN CA 10 MG TABLET (FP) PO SCH (21:51)
[2021-01-07 07:19] LABS: BASO % 0.4 % (0-2.0); EOS % 0.3 % (0-4.5); HEMATOCRIT 23.9 % (32.4-45.2); HEMOGLOBIN 8.3 GM/dL (10.7-15.3); LYMPH % 11.7 % (8-40); MCH 32.5 pg (25.7-33.7); MCHC 34.7 g/dl (32.0-36.0); MEAN CELL VOLUME 93.8 fl (80-96); MEAN PLT VOLUME 7.8 fl (7.5-11.1); MONO % 22.5 % (3.8-10.2); NEUT % 65.1 % (42.8-82.8); PLATELET COUNT 67 K/MM3 (134-434); RBC 2.55 M/mm3 (3.60-5.2); RDW 17.1 % (11.6-15.6); WHITE BLOOD COUNT 13.4 K/mm3 (4.0-10.0)
[2021-01-07 07:29] LABS: ACTIVATED PTT 25.7 SECONDS (25.2-36.5)
[2021-01-07 08:14] LABS: ALBUMIN 1.6 g/dl (3.4-5.0)
[2021-01-07 08:17] LABS: BILIRUBIN,TOTAL 0.8 mg/dL (0.2-1); CALCIUM 9.9 mg/dL (8.5-10.1); CREATININE 3.3 mg/dL (0.55-1.3); PHOSPHOROUS 4.2 mg/dL (2.5-4.9)
[2021-01-07 08:18] LABS: TOT PROT 9.1 g/dl (6.4-8.2)
[2021-01-07 08:19] LABS: BLOOD UREA NITROGEN 36.8 mg/dL (7-18)
[2021-01-07 08:25] LABS: INR 1.49 (0.83-1.09); PROTHROMBIN TIME (PATIENT) 17.8 SEC (9.7-13.0)
[2021-01-07] MEDS: ACETAMINOPHEN 325 MG TABLET (FP) PO PRN (09:51)
[2021-01-07] MEDS: PANTOPRAZOLE SODIUM 40 MG VIAL IVPB SCH (09:52)
[2021-01-07] MEDS: KCL 10 MEQ IVPB 10 MEQ/100 ML INFUS.BAG IVPB SCH ×3 (11:19→18:52)
[2021-01-07] MEDS ORDERED: LIDOCAINE HCL 1%, 10 MG/ML (20ML VIAL) ONE (12:34)
[2021-01-07] MEDS ORDERED: PROPOFOL 20 ML ONE (13:32)
[2021-01-07] MEDS ORDERED: MIDAZOLAM HCL 2 MG/2 ML SINGLE DOSE VIAL ONE (13:33)
[2021-01-07] MEDS ORDERED: SODIUM CHLORIDE 250 ML IV PRN (13:35)
[2021-01-07] MEDS ORDERED: ceFAZolin SODIUM 1 GM VIAL IVPB ONE (13:41)
[2021-01-07] MEDS ORDERED: LIDOCAINE HCL 1%, 10 MG/ML (20ML VIAL) SQ ONE ×2 (13:47)
[2021-01-07] MEDS ORDERED: ACETAMINOPHEN 1000 MG/100 ML VIAL (NON FORMULARY) IVPB ONE ×2 (15:18→15:21)
[2021-01-07] MEDS: ATORVASTATIN CA 10 MG TABLET (FP) PO SCH (22:03)
[2021-01-08 09:45] LABS: BASO % 0.3 % (0-2.0); EOS % 1.1 % (0-4.5); HEMATOCRIT 22.2 % (32.4-45.2); HEMOGLOBIN 7.6 GM/dL (10.7-15.3); LYMPH % 13.3 % (8-40); MCH 32.5 pg (25.7-33.7); MCHC 34.2 g/dl (32.0-36.0); MEAN PLT VOLUME 7.6 fl (7.5-11.1); MONO % 29.1 % (3.8-10.2); NEUT % 56.2 % (42.8-82.8); PLATELET COUNT 62 K/MM3 (134-434); RBC 2.34 M/mm3 (3.60-5.2); WHITE BLOOD COUNT 13.3 K/mm3 (4.0-10.0)
[2021-01-08 10:22] LABS: ALBUMIN 1.5 g/dl (3.4-5.0); CALCIUM 10.1 mg/dL (8.5-10.1)
[2021-01-08 10:23] LABS: MAGNESIUM 2.2 mg/dL (1.8-2.4)
[2021-01-08 10:25] LABS: CREATININE 4.6 mg/dL (0.55-1.3)
[2021-01-08 10:26] LABS: PHOSPHOROUS 5.6 mg/dL (2.5-4.9)
[2021-01-08 10:27] LABS: BILIRUBIN,TOTAL 0.5 mg/dL (0.2-1); TOT PROT 8.8 g/dl (6.4-8.2)
[2021-01-08 10:44] LABS: ANISOCYTOSIS 1+; MACROCYTOSIS 1+; OVALOCYTE 1+; PLATELET ESTIMATE DECREASED
[2021-01-08] MEDS: valACYclovir HCL 500 MG TABLET (FP) PO SCH (13:47)
[2021-01-08] MEDS: PANTOPRAZOLE SODIUM 40 MG VIAL IVPB SCH (13:48)
[2021-01-08] MEDS ORDERED: DEXAMETHASONE INJECTION 20 MG in SODIUM CHLORIDE 50 ML IVPB ONE (14:45)
[2021-01-08] MEDS ORDERED: DEXAMETHASONE INJECTION 20 MG in SODIUM CHLORIDE 50 ML IVPUSH ONE (14:45)
[2021-01-08] MEDS ORDERED: ONDANSETRON 4 MG/2 ML VIAL IVPB ONE (14:57)
[2021-01-08] MEDS ORDERED: BORTEZOMIB (VELCADE) 2.5 MG/ML SUB-Q INJECTION SQ ONE (15:00)
[2021-01-08] MEDS ORDERED: DEXAMETHASONE SOD PHOSPHATE 10 MG/1 ML VIAL ONE (15:15)
[2021-01-08] MEDS ORDERED: CYCLOPHOSPHAMIDE 50 MG CAPSULE PO ONE (15:30)
[2021-01-08 15:47] LABS: HEMATOCRIT 22.3 % (32.4-45.2); HEMOGLOBIN 7.4 GM/dL (10.7-15.3); MCHC 33.4 g/dl (32.0-36.0); MEAN CELL VOLUME 95.8 fl (80-96); MEAN PLT VOLUME 7.5 fl (7.5-11.1); PLATELET COUNT 58 K/MM3 (134-434); RBC 2.32 M/mm3 (3.60-5.2); RDW 16.9 % (11.6-15.6); WHITE BLOOD COUNT 13.2 K/mm3 (4.0-10.0)
[2021-01-08] MEDS ORDERED: MORPHINE SULFATE 2 MG/ML VIAL IVPUSH ONE (19:30)
[2021-01-08] MEDS: SILVER SULFADIAZINE 1% TOP CREAM 50 GM JAR TP SCH (21:39)
[2021-01-08] MEDS: ATORVASTATIN CA 10 MG TABLET (FP) PO SCH (21:40)
[2021-01-09 07:52] LABS: BASO % 0.4 % (0-2.0); EOS % 1.4 % (0-4.5); HEMATOCRIT 21.9 % (32.4-45.2); HEMOGLOBIN 7.2 GM/dL (10.7-15.3); LYMPH % 16.7 % (8-40); MCH 31.9 pg (25.7-33.7); MCHC 32.9 g/dl (32.0-36.0); MEAN CELL VOLUME 96.9 fl (80-96); MEAN PLT VOLUME 7.6 fl (7.5-11.1); MONO % 19.4 % (3.8-10.2); NEUT % 62.1 % (42.8-82.8); PLATELET COUNT 57 K/MM3 (134-434); RBC 2.26 M/mm3 (3.60-5.2); RDW 17.3 % (11.6-15.6); WHITE BLOOD COUNT 12.1 K/mm3 (4.0-10.0)
[2021-01-09 08:05] LABS: INR 1.4 (0.83-1.09); PROTHROMBIN TIME (PATIENT) 17.1 SEC (9.7-13.0)
[2021-01-09 08:08] LABS: ACTIVATED PTT 27.5 SECONDS (25.2-36.5)
[2021-01-09 08:21] LABS: ALBUMIN 1.4 g/dl (3.4-5.0)
[2021-01-09 08:23] LABS: MAGNESIUM 1.9 mg/dL (1.8-2.4)
[2021-01-09 08:24] LABS: PHOSPHOROUS 3.9 mg/dL (2.5-4.9)
[2021-01-09 08:25] LABS: URIC ACID 2.5 mg/dL (2.6-7.2)
[2021-01-09 08:26] LABS: BILIRUBIN,TOTAL 0.5 mg/dL (0.2-1); TOT PROT 8.8 g/dl (6.4-8.2)
[2021-01-09 08:27] LABS: BLOOD UREA NITROGEN 26.3 mg/dL (7-18)
[2021-01-09] MEDS ORDERED: SODIUM CHLORIDE 1,000 ML IV SCH (08:30)
[2021-01-09] MEDS: SILVER SULFADIAZINE 1% TOP CREAM 50 GM JAR TP SCH (10:32)
[2021-01-09] MEDS: PANTOPRAZOLE SODIUM 40 MG VIAL IVPB SCH (10:32)
[2021-01-09] MEDS: valACYclovir HCL 500 MG TABLET (FP) PO SCH (10:32)
[2021-01-09 11:37] LABS: ANISOCYTOSIS 2+; MACROCYTOSIS 2+; PLATELET ESTIMATE DECREASED; ROULEAU 2+
[2021-01-09] MEDS: ACETAMINOPHEN 325 MG TABLET (FP) PO PRN (14:30)
[2021-01-09] MEDS ORDERED: SENNOSIDES 8.6MG TABLET (FP) PO PRN (21:12)
[2021-01-09] MEDS ORDERED: SODIUM CHLORIDE 250 ML IV PRN (21:12)
[2021-01-09] MEDS ORDERED: DOCUSATE SODIUM 100 MG CAPSULE (FP) PO PRN (21:12)
[2021-01-09] MEDS ORDERED: ACETAMINOPHEN 325 MG TABLET (FP) PO PRN (21:12)
[2021-01-09] MEDS: ATORVASTATIN CA 10 MG TABLET (FP) PO SCH (22:09)
[2021-01-10] MEDS: PANTOPRAZOLE SODIUM 40 MG VIAL IVPB SCH (09:59)
[2021-01-10] MEDS: SILVER SULFADIAZINE 1% TOP CREAM 50 GM JAR TP SCH (10:00)
[2021-01-10] MEDS: valACYclovir HCL 500 MG TABLET (FP) PO SCH (10:01)
[2021-01-10 10:02] LABS: BASO % 0.3 % (0-2.0); EOS % 1.2 % (0-4.5); HEMATOCRIT 21.1 % (32.4-45.2); HEMOGLOBIN 7.2 GM/dL (10.7-15.3); LYMPH % 15.6 % (8-40); MCH 33.2 pg (25.7-33.7); MEAN CELL VOLUME 97.4 fl (80-96); MEAN PLT VOLUME 7.8 fl (7.5-11.1); MONO % 21.5 % (3.8-10.2); NEUT % 61.4 % (42.8-82.8); PLATELET COUNT 50 K/MM3 (134-434); RBC 2.16 M/mm3 (3.60-5.2); RDW 17.2 % (11.6-15.6); WHITE BLOOD COUNT 9.3 K/mm3 (4.0-10.0)
[2021-01-10 10:33] LABS: ALBUMIN 1.4 g/dl (3.4-5.0); CALCIUM 9.9 mg/dL (8.5-10.1)
[2021-01-10 10:34] LABS: BLOOD UREA NITROGEN 44.5 mg/dL (7-18)
[2021-01-10 10:36] LABS: URIC ACID 5.5 mg/dL (2.6-7.2)
[2021-01-10 10:37] LABS: BILIRUBIN,TOTAL 0.4 mg/dL (0.2-1); CREATININE 4.5 mg/dL (0.55-1.3); TOT PROT 8.7 g/dl (6.4-8.2)
[2021-01-10 11:23] LABS: ANISOCYTOSIS 2+; MACROCYTOSIS 0; PLATELET ESTIMATE DECREASED
[2021-01-10] MEDS ORDERED: SODIUM CHLORIDE 250 ML IV PRN ×2 (14:43→14:44)
[2021-01-10] MEDS: ATORVASTATIN CA 10 MG TABLET (FP) PO SCH (22:07)
[2021-01-11 08:10] LABS: BASO % 0.4 % (0-2.0); EOS % 1.2 % (0-4.5); HEMATOCRIT 18.1 % (32.4-45.2); LYMPH % 17.1 % (8-40); MCH 33.2 pg (25.7-33.7); MCHC 34.1 g/dl (32.0-36.0); MEAN CELL VOLUME 97.4 fl (80-96); MEAN PLT VOLUME 7.5 fl (7.5-11.1); MONO % 14.9 % (3.8-10.2); NEUT % 66.4 % (42.8-82.8); PLATELET COUNT 46 K/MM3 (134-434); RBC 1.86 M/mm3 (3.60-5.2); RDW 17.2 % (11.6-15.6); WHITE BLOOD COUNT 6.7 K/mm3 (4.0-10.0)
[2021-01-11 08:19] LABS: HEMOGLOBIN 6.2 GM/dL (10.7-15.3)
[2021-01-11 08:36] LABS: CALCIUM 9.6 mg/dL (8.5-10.1); MAGNESIUM 2.1 mg/dL (1.8-2.4)
[2021-01-11 08:37] LABS: ALBUMIN 1.3 g/dl (3.4-5.0); BLOOD UREA NITROGEN 59.3 mg/dL (7-18)
[2021-01-11 08:38] LABS: CREATININE 5.8 mg/dL (0.55-1.3); URIC ACID 7.2 mg/dL (2.6-7.2)
[2021-01-11 08:41] LABS: BILIRUBIN,TOTAL 0.4 mg/dL (0.2-1); PHOSPHOROUS 7.3 mg/dL (2.5-4.9); TOT PROT 8.5 g/dl (6.4-8.2)
[2021-01-11 13:26] LABS: ANISOCYTOSIS 1+; MACROCYTOSIS 1+; PLATELET ESTIMATE DECREASED; TOXIC GRANULATION 2+
[2021-01-11] MEDS: valACYclovir HCL 500 MG TABLET (FP) PO SCH (13:27)
[2021-01-11] MEDS: SILVER SULFADIAZINE 1% TOP CREAM 50 GM JAR TP SCH (13:27)
[2021-01-11] MEDS: PANTOPRAZOLE SODIUM 40 MG VIAL IVPB SCH (13:28)
[2021-01-11] MEDS: ATORVASTATIN CA 10 MG TABLET (FP) PO SCH (22:00)
[2021-01-12 07:50] LABS: EOS % 0.7 % (0-4.5); HEMATOCRIT 22.7 % (32.4-45.2); LYMPH % 20.9 % (8-40); MCHC 35.2 g/dl (32.0-36.0); MEAN CELL VOLUME 93.7 fl (80-96); MEAN PLT VOLUME 7.4 fl (7.5-11.1); MONO % 13.5 % (3.8-10.2); NEUT % 63.9 % (42.8-82.8); PLATELET COUNT 50 K/MM3 (134-434); RBC 2.42 M/mm3 (3.60-5.2); WHITE BLOOD COUNT 6.4 K/mm3 (4.0-10.0)
[2021-01-12 08:28] LABS: ALBUMIN 1.4 g/dl (3.4-5.0); CALCIUM 10.2 mg/dL (8.5-10.1); MAGNESIUM 2.3 mg/dL (1.8-2.4)
[2021-01-12 08:32] LABS: BILIRUBIN,TOTAL 0.6 mg/dL (0.2-1); CREATININE 3.7 mg/dL (0.55-1.3); PHOSPHOROUS 4.4 mg/dL (2.5-4.9)
[2021-01-12 09:02] LABS: BLOOD UREA NITROGEN 31.3 mg/dL (7-18)
[2021-01-12] MEDS: valACYclovir HCL 500 MG TABLET (FP) PO SCH (09:22)
[2021-01-12] MEDS: PANTOPRAZOLE SODIUM 40 MG VIAL IVPB SCH (09:22)
[2021-01-12 10:34] LABS: ANISOCYTOSIS 0; MACROCYTOSIS 0; PLATELET ESTIMATE DECREASED
[2021-01-12] MEDS ORDERED: SODIUM CHLORIDE 250 ML IV PRN (12:25)
[2021-01-12] MEDS ORDERED: DEXAMETHASONE SOD PHOSPHATE 10 MG/1 ML VIAL IVPB ONE (12:28)
[2021-01-12] MEDS: SILVER SULFADIAZINE 1% TOP CREAM 50 GM JAR TP SCH (12:44)
[2021-01-12] MEDS ORDERED: BORTEZOMIB (VELCADE) 2.5 MG/ML SUB-Q INJECTION SQ ONE (14:00)
[2021-01-12] MEDS: ATORVASTATIN CA 10 MG TABLET (FP) PO SCH (21:45)
[2021-01-13] MEDS ORDERED: SODIUM CHLORIDE 250 ML IV PRN ×3 (01:13)
[2021-01-13] MEDS ORDERED: SENNOSIDES 8.6MG TABLET (FP) PO PRN (01:13)
[2021-01-13] MEDS ORDERED: DOCUSATE SODIUM 100 MG CAPSULE (FP) PO PRN (01:13)
[2021-01-13 07:27] LABS: BASO % 1.3 % (0-2.0); EOS % 0.1 % (0-4.5); HEMATOCRIT 21.1 % (32.4-45.2); HEMOGLOBIN 7.4 GM/dL (10.7-15.3); LYMPH % 19.8 % (8-40); MCHC 34.9 g/dl (32.0-36.0); MEAN CELL VOLUME 94.8 fl (80-96); MEAN PLT VOLUME 7.5 fl (7.5-11.1); MONO % 13.5 % (3.8-10.2); NEUT % 65.3 % (42.8-82.8); PLATELET COUNT 44 K/MM3 (134-434); RBC 2.23 M/mm3 (3.60-5.2); RDW 17.1 % (11.6-15.6)
[2021-01-13 07:51] LABS: ALBUMIN 1.3 g/dl (3.4-5.0); MAGNESIUM 2.1 mg/dL (1.8-2.4)
[2021-01-13 07:53] LABS: CALCIUM 9.4 mg/dL (8.5-10.1)
[2021-01-13 07:55] LABS: CREATININE 5.1 mg/dL (0.55-1.3); PHOSPHOROUS 5.5 mg/dL (2.5-4.9)
[2021-01-13 07:56] LABS: BILIRUBIN,TOTAL 0.4 mg/dL (0.2-1); TOT PROT 9.1 g/dl (6.4-8.2)
[2021-01-13 08:31] LABS: FREE KAPPA,SERUM 3867.4
[2021-01-13] MEDS ORDERED: SILVER SULFADIAZINE 1% TOP CREAM 50 GM JAR TP SCH (10:00)
[2021-01-13 10:06] LABS: PLATELET ESTIMATE DECREASED
[2021-01-13 10:59] LABS: ROULEAU 1+
[2021-01-13] MEDS: valACYclovir HCL 500 MG TABLET (FP) PO SCH (15:01)
[2021-01-13] MEDS: PANTOPRAZOLE SODIUM 40 MG VIAL IVPB SCH (15:01)
[2021-01-13] MEDS: ACETAMINOPHEN 325 MG TABLET (FP) PO PRN (20:14)
[2021-01-13] MEDS: ATORVASTATIN CA 10 MG TABLET (FP) PO SCH (21:10)
[2021-01-14 07:37] LABS: CALCIUM 9.2 mg/dL (8.5-10.1)
[2021-01-14 07:38] LABS: ALBUMIN 1.4 g/dl (3.4-5.0); BLOOD UREA NITROGEN 31.4 mg/dL (7-18); MAGNESIUM 2.3 mg/dL (1.8-2.4)
[2021-01-14 07:41] LABS: CREATININE 3.3 mg/dL (0.55-1.3); PHOSPHOROUS 4.4 mg/dL (2.5-4.9)
[2021-01-14 07:42] LABS: BILIRUBIN,TOTAL 0.4 mg/dL (0.2-1); TOT PROT 9.1 g/dl (6.4-8.2)
[2021-01-14 07:46] LABS: BASO % 0.1 % (0-2.0); EOS % 0.1 % (0-4.5); HEMATOCRIT 20.6 % (32.4-45.2); LYMPH % 21.4 % (8-40); MCH 32.5 pg (25.7-33.7); MEAN CELL VOLUME 95.7 fl (80-96); MEAN PLT VOLUME 7.9 fl (7.5-11.1); MONO % 8.4 % (3.8-10.2); PLATELET COUNT 43 K/MM3 (134-434); RBC 2.15 M/mm3 (3.60-5.2); RDW 16.7 % (11.6-15.6); WHITE BLOOD COUNT 5.1 K/mm3 (4.0-10.0)
[2021-01-14] MEDS: ACETAMINOPHEN 325 MG TABLET (FP) PO PRN (10:58)
[2021-01-14] MEDS: valACYclovir HCL 500 MG TABLET (FP) PO SCH (10:59)
[2021-01-14] MEDS: PANTOPRAZOLE SODIUM 40 MG VIAL IVPB SCH (11:00)
[2021-01-14] MEDS: ATORVASTATIN CA 10 MG TABLET (FP) PO SCH (21:30)
[2021-01-15] MEDS ORDERED: SODIUM CHLORIDE 250 ML IV PRN (07:19)
[2021-01-15 07:32] LABS: BASO % 0.3 % (0-2.0); EOS % 0.7 % (0-4.5); HEMOGLOBIN 7.2 GM/dL (10.7-15.3); LYMPH % 26.9 % (8-40); MCHC 34.5 g/dl (32.0-36.0); MEAN CELL VOLUME 95.4 fl (80-96); MEAN PLT VOLUME 7.4 fl (7.5-11.1); MONO % 8.5 % (3.8-10.2); NEUT % 63.6 % (42.8-82.8); PLATELET COUNT 39 K/MM3 (134-434); RDW 16.3 % (11.6-15.6); WHITE BLOOD COUNT 4.3 K/mm3 (4.0-10.0)
[2021-01-15 07:34] LABS: ALBUMIN 1.4 g/dl (3.4-5.0); BLOOD UREA NITROGEN 47.4 mg/dL (7-18)
[2021-01-15 07:35] LABS: MAGNESIUM 2.2 mg/dL (1.8-2.4)
[2021-01-15 07:37] LABS: CREATININE 4.5 mg/dL (0.55-1.3); PHOSPHOROUS 4.8 mg/dL (2.5-4.9)
[2021-01-15 07:38] LABS: BILIRUBIN,TOTAL 1.1 mg/dL (0.2-1); TOT PROT 9.1 g/dl (6.4-8.2)
[2021-01-15] MEDS ORDERED: CITALOPRAM HYDROBROMIDE 10 MG TABLET PO SCH (10:00)
[2021-01-15] MEDS ORDERED: ALPRAZolam 1 MG TABLET PO ONE (10:28)
[2021-01-15] MEDS: valACYclovir HCL 500 MG TABLET (FP) PO SCH (11:13)
[2021-01-15] MEDS: PANTOPRAZOLE 40 MG TABLET PO SCH (11:13)
[2021-01-15] MEDS: ALBUMIN HUMAN 25% 12.5 GM/50 ML VIAL IVPB SCH ×2 (13:21→14:13)
[2021-01-15 14:58] LABS: ANISOCYTOSIS 0; MACROCYTOSIS 0; PLATELET ESTIMATE DECREASED
[2021-01-15] MEDS: ATORVASTATIN CA 10 MG TABLET (FP) PO SCH (21:25)
[2021-01-15] MEDS: MIRTAZAPINE 15 MG TABLET (FP) PO SCH (21:25)
[2021-01-16 08:55] LABS: BASO % 0.5 % (0-2.0); EOS % 0.9 % (0-4.5); HEMATOCRIT 22.6 % (32.4-45.2); LYMPH % 34.6 % (8-40); MCH 32.6 pg (25.7-33.7); MCHC 35.5 g/dl (32.0-36.0); MEAN CELL VOLUME 91.8 fl (80-96); MEAN PLT VOLUME 7.3 fl (7.5-11.1); RBC 2.46 M/mm3 (3.60-5.2); RDW 17.1 % (11.6-15.6); WHITE BLOOD COUNT 3.4 K/mm3 (4.0-10.0)
[2021-01-16 09:06] LABS: PLATELET COUNT 33 K/MM3 (134-434)
[2021-01-16] MEDS: valACYclovir HCL 500 MG TABLET (FP) PO SCH (09:17)
[2021-01-16] MEDS: PANTOPRAZOLE 40 MG TABLET PO SCH (09:18)
[2021-01-16 10:43] LABS: ALBUMIN 1.4 g/dl (3.4-5.0)
[2021-01-16 10:44] LABS: BLOOD UREA NITROGEN 25.5 mg/dL (7-18)
[2021-01-16 10:45] LABS: BILIRUBIN,TOTAL 0.6 mg/dL (0.2-1); TOT PROT 9.1 g/dl (6.4-8.2)
[2021-01-16 10:46] LABS: MAGNESIUM 1.9 mg/dL (1.8-2.4); PHOSPHOROUS 3.1 mg/dL (2.5-4.9)
[2021-01-16 10:47] LABS: CALCIUM 10.3 mg/dL (8.5-10.1)
[2021-01-16] MEDS: MIRTAZAPINE 15 MG TABLET (FP) PO SCH (21:19)
[2021-01-16] MEDS: ATORVASTATIN CA 10 MG TABLET (FP) PO SCH (21:19)
[2021-01-17 07:32] LABS: HEMATOCRIT 23.9 % (32.4-45.2); HEMOGLOBIN 8.1 GM/dL (10.7-15.3); MCH 31.8 pg (25.7-33.7); MEAN CELL VOLUME 93.4 fl (80-96); MEAN PLT VOLUME 7.6 fl (7.5-11.1); RBC 2.56 M/mm3 (3.60-5.2); RDW 16.9 % (11.6-15.6); WHITE BLOOD COUNT 3.5 K/mm3 (4.0-10.0)
[2021-01-17] MEDS: PANTOPRAZOLE 40 MG TABLET PO SCH (09:19)
[2021-01-17] MEDS: valACYclovir HCL 500 MG TABLET (FP) PO SCH (09:19)
[2021-01-17] MEDS ORDERED: SODIUM CHLORIDE 250 ML IV PRN (14:38)
[2021-01-17 14:51] LABS: PLATELET COUNT 27 K/MM3 (134-434)
[2021-01-17] MEDS: MIRTAZAPINE 15 MG TABLET (FP) PO SCH (21:15)
[2021-01-17] MEDS: ATORVASTATIN CA 10 MG TABLET (FP) PO SCH (21:15)
[2021-01-18] MEDS: LACTATED RINGERS SOLUTION 1,000 ML/1,000 ML INFUS.BAG IV SCH (02:55)
[2021-01-18 07:46] LABS: BASO % 1.2 % (0-2.0); CALCIUM 10.3 mg/dL (8.5-10.1); EOS % 1.3 % (0-4.5); HEMATOCRIT 22.6 % (32.4-45.2); HEMOGLOBIN 7.9 GM/dL (10.7-15.3); LYMPH % 31.5 % (8-40); MCH 32.7 pg (25.7-33.7); MCHC 34.9 g/dl (32.0-36.0); MEAN CELL VOLUME 93.6 fl (80-96); MEAN PLT VOLUME 7.3 fl (7.5-11.1); MONO % 10.9 % (3.8-10.2); NEUT % 55.1 % (42.8-82.8); RBC 2.42 M/mm3 (3.60-5.2); RDW 16.5 % (11.6-15.6); WHITE BLOOD COUNT 3.1 K/mm3 (4.0-10.0)
[2021-01-18 07:51] LABS: BLOOD UREA NITROGEN 52.3 mg/dL (7-18); CREATININE 5.7 mg/dL (0.55-1.3)
[2021-01-18 08:15] LABS: PLATELET COUNT 24 K/MM3 (134-434)
[2021-01-18 12:36] LABS: ANISOCYTOSIS 1+; MACROCYTOSIS 0; PLATELET ESTIMATE DECREASED
[2021-01-18] MEDS: valACYclovir HCL 500 MG TABLET (FP) PO SCH (14:00)
[2021-01-18] MEDS: PANTOPRAZOLE 40 MG TABLET PO SCH (14:00)
[2021-01-18] MEDS: ATORVASTATIN CA 10 MG TABLET (FP) PO SCH (21:49)
[2021-01-18] MEDS: MIRTAZAPINE 15 MG TABLET (FP) PO SCH (21:49)
[2021-01-19] MEDS: LACTATED RINGERS SOLUTION 1,000 ML/1,000 ML INFUS.BAG IV SCH (05:10)
[2021-01-19 08:17] LABS: URIC ACID 3.5 mg/dL (2.6-7.2)
[2021-01-19] MEDS: PANTOPRAZOLE 40 MG TABLET PO SCH (09:31)
[2021-01-19] MEDS: valACYclovir HCL 500 MG TABLET (FP) PO SCH (09:31)
[2021-01-19 11:25] LABS: HEMATOCRIT 21.8 % (32.4-45.2); HEMOGLOBIN 7.5 GM/dL (10.7-15.3); MCH 32.5 pg (25.7-33.7); MCHC 34.2 g/dl (32.0-36.0); MEAN CELL VOLUME 94.8 fl (80-96); MEAN PLT VOLUME 7.9 fl (7.5-11.1); PLATELET COUNT 56 K/MM3 (134-434); RDW 17.2 % (11.6-15.6); WHITE BLOOD COUNT 2.6 K/mm3 (4.0-10.0)
[2021-01-19 13:36] LABS: BLOOD UREA NITROGEN 28.5 mg/dL (7-18); CALCIUM 10.7 mg/dL (8.5-10.1)
[2021-01-19 13:39] LABS: ALBUMIN 1.4 g/dl (3.4-5.0)
[2021-01-19 13:43] LABS: CREATININE 3.9 mg/dL (0.55-1.3)
[2021-01-19 13:44] LABS: BILIRUBIN,TOTAL 0.6 mg/dL (0.2-1); TOT PROT 9.3 g/dl (6.4-8.2)
[2021-01-19 17:06] LABS: ALBUMIN 1.4 g/dl (3.4-5.0); BLOOD UREA NITROGEN 32.5 mg/dL (7-18); CALCIUM 10.6 mg/dL (8.5-10.1)
[2021-01-19 17:10] LABS: CREATININE 4.5 mg/dL (0.55-1.3)
[2021-01-19 17:11] LABS: BILIRUBIN,TOTAL 0.6 mg/dL (0.2-1); TOT PROT 9.5 g/dl (6.4-8.2)
[2021-01-19] MEDS: ACETAMINOPHEN 325 MG TABLET (FP) PO PRN (22:34)
[2021-01-19] MEDS: ATORVASTATIN CA 10 MG TABLET (FP) PO SCH (22:35)
[2021-01-19] MEDS: MIRTAZAPINE 15 MG TABLET (FP) PO SCH (22:35)
[2021-01-20] MEDS: LACTATED RINGERS SOLUTION 1,000 ML/1,000 ML INFUS.BAG IV SCH ×2 (01:30→07:13)
[2021-01-20 07:27] LABS: BASO % 5.6 % (0-2.0); EOS % 0.7 % (0-4.5); HEMATOCRIT 22.3 % (32.4-45.2); HEMOGLOBIN 7.4 GM/dL (10.7-15.3); INR 1.45 (0.83-1.09); LYMPH % 29.1 % (8-40); MCH 31.8 pg (25.7-33.7); MCHC 33.3 g/dl (32.0-36.0); MEAN CELL VOLUME 95.6 fl (80-96); MEAN PLT VOLUME 7.9 fl (7.5-11.1); MONO % 18.8 % (3.8-10.2); NEUT % 45.8 % (42.8-82.8); PLATELET COUNT 43 K/MM3 (134-434); PROTHROMBIN TIME (PATIENT) 17.3 SEC (9.7-13.0); RBC 2.33 M/mm3 (3.60-5.2); WHITE BLOOD COUNT 2.1 K/mm3 (4.0-10.0)
[2021-01-20 07:48] LABS: CHLORIDE 106 mmol/L (98-107); SODIUM 143 mmol/L (136-145)
[2021-01-20 08:32] LABS: ALBUMIN 1.3 g/dl (3.4-5.0); ANION GAP 7 MMOL/L (8-16); BLOOD UREA NITROGEN 42.6 mg/dL (7-18); CALCIUM 11.1 mg/dL (8.5-10.1); CO2 30 mmol/L (21-32); GLUCOSE,RANDOM 102 mg/dL (74-106); MAGNESIUM 2.1 mg/dL (1.8-2.4)
[2021-01-20 08:35] LABS: CREATININE 5.3 mg/dL (0.55-1.3); PHOSPHOROUS 4.8 mg/dL (2.5-4.9); SGOT/AST 19 U/L (15-37); SGPT/ALT 13 U/L (13-61)
[2021-01-20 08:37] LABS: ALK PHOS 59 U/L (45-117); BILIRUBIN,TOTAL 0.9 mg/dL (0.2-1); TOT PROT 9.6 g/dl (6.4-8.2)
[2021-01-20] MEDS ORDERED: METOPROLOL TARTRATE 5 MG/5 ML VIAL IVPUSH ONE (08:45)
[2021-01-20] MEDS: valACYclovir HCL 500 MG TABLET (FP) PO SCH (09:55)
[2021-01-20] MEDS: PANTOPRAZOLE 40 MG TABLET PO SCH (09:55)
[2021-01-20] MEDS ORDERED: CLINDAMYCIN 900 MG PREMIX IVPB 900 MG/50 ML BAG IVPB SCH (11:30)
[2021-01-20] MEDS ORDERED: FUROSEMIDE 40 MG/4 ML INJECTABLE VIAL IVPB ONE (12:00)
[2021-01-20 13:31] LABS: ANISOCYTOSIS 1+; MACROCYTOSIS 1+; ROULEAU 2+
[2021-01-20] MEDS ORDERED: SODIUM CHLORIDE 250 ML IV PRN ×3 (15:50→19:36)
[2021-01-20] MEDS ORDERED: CEFEPIME HCL 1 GM VIAL (RESTRICTED TO ID) ONE (16:52)
[2021-01-20] MEDS ORDERED: DEXTROSE 5%-WATER 100 ML IVPB ONE (16:52)
[2021-01-20] MEDS ORDERED: VANCOMYCIN 1 GRAM (PRE-DOCKED) 1,000 MG/250 ML BAG IVPB ONE (17:00)
[2021-01-20] MEDS: CEFEPIME 1 GM in DEXTROSE 5%-WATER 1 GM/100 ML BAG IVPB SCH (18:23)
[2021-01-20] MEDS: ALBUMIN HUMAN 25% 12.5 GM/50 ML VIAL IVPB SCH ×3 (18:57→18:59)
[2021-01-20] MEDS ORDERED: SENNOSIDES 8.6MG TABLET (FP) PO PRN (19:36)
[2021-01-20] MEDS ORDERED: ACETAMINOPHEN 325 MG TABLET (FP) PO PRN (19:36)
[2021-01-20] MEDS ORDERED: DOCUSATE SODIUM 100 MG CAPSULE (FP) PO PRN (19:36)
[2021-01-20] MEDS: ATORVASTATIN CA 10 MG TABLET (FP) PO SCH (22:13)
[2021-01-20] MEDS: MIRTAZAPINE 15 MG TABLET (FP) PO SCH (22:13)
[2021-01-21] MEDS ORDERED: ACETAMINOPHEN 1000 MG/100 ML VIAL (NON FORMULARY) IVPB ONE (02:21)
[2021-01-21] MEDS: PANTOPRAZOLE 40 MG TABLET PO SCH (09:32)
[2021-01-21] MEDS: valACYclovir HCL 500 MG TABLET (FP) PO SCH (09:32)
[2021-01-21] MEDS: METOPROLOL TARTRATE 5 MG/5 ML VIAL IVPUSH PRN ×2 (09:33→20:19)
[2021-01-21 11:12] LABS: EOS % 0.8 % (0-4.5); HEMATOCRIT 20.2 % (32.4-45.2); LYMPH % 54.9 % (8-40); MCH 32.4 pg (25.7-33.7); MEAN CELL VOLUME 95.3 fl (80-96); MEAN PLT VOLUME 7.8 fl (7.5-11.1); MONO % 8.6 % (3.8-10.2); NEUT % 35.7 % (42.8-82.8); RBC 2.12 M/mm3 (3.60-5.2); RDW 16.7 % (11.6-15.6)
[2021-01-21 11:18] LABS: HEMOGLOBIN 6.9 GM/dL (10.7-15.3); PLATELET COUNT 30 K/MM3 (134-434); WHITE BLOOD COUNT 1.6 K/mm3 (4.0-10.0)
[2021-01-21 11:36] LABS: INR 2.06 (0.83-1.09); PROTHROMBIN TIME (PATIENT) 24.4 SEC (9.7-13.0)
[2021-01-21] MEDS ORDERED: TBO-FILGRASTIM 300 MCG/0.5 ML DISP.SYRINGE SQ ONE (15:00)
[2021-01-21] MEDS ORDERED: CEFEPIME HCL 1 GM VIAL (RESTRICTED TO ID) ONE (17:49)
[2021-01-21] MEDS ORDERED: DEXTROSE 5%-WATER 100 ML IVPB ONE (17:50)
[2021-01-21] MEDS: CEFEPIME 1 GM in DEXTROSE 5%-WATER 1 GM/100 ML BAG IVPB SCH (17:51)
[2021-01-21] MEDS: ATORVASTATIN CA 10 MG TABLET (FP) PO SCH (21:25)
[2021-01-21] MEDS: MIRTAZAPINE 15 MG TABLET (FP) PO SCH (21:26)
[2021-01-22] MEDS: METOPROLOL TARTRATE 5 MG/5 ML VIAL IVPUSH PRN ×4 (01:51→16:25)
[2021-01-22 07:51] LABS: BASO % 0.4 % (0-2.0); EOS % 0.5 % (0-4.5); HEMATOCRIT 23.1 % (32.4-45.2); LYMPH % 33.1 % (8-40); MCH 32.1 pg (25.7-33.7); MCHC 34.7 g/dl (32.0-36.0); MEAN CELL VOLUME 92.7 fl (80-96); MEAN PLT VOLUME 8.2 fl (7.5-11.1); MONO % 8.4 % (3.8-10.2); NEUT % 57.6 % (42.8-82.8); RBC 2.49 M/mm3 (3.60-5.2); RDW 17.4 % (11.6-15.6); WHITE BLOOD COUNT 3.2 K/mm3 (4.0-10.0)
[2021-01-22 08:05] LABS: ALBUMIN 1.4 g/dl (3.4-5.0); CALCIUM 11.8 mg/dL (8.5-10.1)
[2021-01-22 08:08] LABS: CREATININE 4.8 mg/dL (0.55-1.3)
[2021-01-22 08:09] LABS: BILIRUBIN,TOTAL 1.5 mg/dL (0.2-1)
[2021-01-22 08:10] LABS: TOT PROT 9.4 g/dl (6.4-8.2)
[2021-01-22 08:31] LABS: PLATELET COUNT 29 K/MM3 (134-434)
[2021-01-22] MEDS: PANTOPRAZOLE 40 MG TABLET PO SCH (09:27)
[2021-01-22] MEDS: valACYclovir HCL 500 MG TABLET (FP) PO SCH (09:27)
[2021-01-22] MEDS: ACETAMINOPHEN 1000 MG/100 ML VIAL (NON FORMULARY) IVPB PRN (09:40)
[2021-01-22] MEDS: PHYTONADIONE 10 MG/1 ML AMP SQ SCH (09:41)
[2021-01-22 10:24] LABS: ANISOCYTOSIS 1+; PLATELET ESTIMATE DECREASED
[2021-01-22] MEDS ORDERED: SODIUM CHLORIDE 500 ML IV STA (12:44)
[2021-01-22] MEDS ORDERED: SODIUM CHLORIDE 250 ML IV PRN (12:48)
[2021-01-22] MEDS ORDERED: DEXTROSE 5%-WATER 100 ML IVPB ONE (16:10)
[2021-01-22] MEDS ORDERED: MEROPENEM 500 MG VIAL (RESTRICTED TO ID) IVPB ONE (16:10)
[2021-01-22] MEDS: MEROPENEM 500 MG in DEXTROSE 5%-WATER 100 ML IVPB SCH (16:19)
[2021-01-22] MEDS: MIRTAZAPINE 15 MG TABLET (FP) PO SCH (21:00)
[2021-01-22] MEDS: ATORVASTATIN CA 10 MG TABLET (FP) PO SCH (21:00)
[2021-01-22] MEDS: dilTIAZem HCL 50 MG/10 ML - 10 ML VIAL IVPUSH PRN (21:53)
[2021-01-23] MEDS: dilTIAZem HCL 50 MG/10 ML - 10 ML VIAL IVPUSH PRN (05:26)
[2021-01-23] MEDS: ACETAMINOPHEN 1000 MG/100 ML VIAL (NON FORMULARY) IVPB PRN (06:46)
[2021-01-23] MEDS ORDERED: ALBUMIN HUMAN 25% 12.5 GM/50 ML VIAL IVPB SCH (08:00)
[2021-01-23 08:43] LABS: BASO % 0.6 % (0-2.0); EOS % 0.4 % (0-4.5); HEMATOCRIT 21.9 % (32.4-45.2); HEMOGLOBIN 7.3 GM/dL (10.7-15.3); LYMPH % 22.7 % (8-40); MCH 31.6 pg (25.7-33.7); MCHC 33.2 g/dl (32.0-36.0); MEAN CELL VOLUME 95.1 fl (80-96); MONO % 9.4 % (3.8-10.2); NEUT % 66.9 % (42.8-82.8); WHITE BLOOD COUNT 5.8 K/mm3 (4.0-10.0)
[2021-01-23 09:10] LABS: PLATELET COUNT 26 K/MM3 (134-434)
[2021-01-23] MEDS: PANTOPRAZOLE 40 MG TABLET PO SCH (10:38)
[2021-01-23] MEDS: PHYTONADIONE 10 MG/1 ML AMP SQ SCH (10:38)
[2021-01-23] MEDS: valACYclovir HCL 500 MG TABLET (FP) PO SCH (10:39)
[2021-01-23 11:02] LABS: BASO % 0.2 % (0-2.0); EOS % 0.4 % (0-4.5); HEMATOCRIT 21.9 % (32.4-45.2); HEMOGLOBIN 7.2 GM/dL (10.7-15.3); LYMPH % 20.9 % (8-40); MCH 31.4 pg (25.7-33.7); MEAN CELL VOLUME 95.3 fl (80-96); MEAN PLT VOLUME 8.4 fl (7.5-11.1); MONO % 9.7 % (3.8-10.2); NEUT % 68.8 % (42.8-82.8); RDW 17.7 % (11.6-15.6)
[2021-01-23 11:11] LABS: PLATELET COUNT 23 K/MM3 (134-434)
[2021-01-23 11:14] LABS: CALCIUM 11.1 mg/dL (8.5-10.1)
[2021-01-23 11:15] LABS: ALBUMIN 1.2 g/dl (3.4-5.0)
[2021-01-23 11:16] LABS: INR 1.61 (0.83-1.09); PROTHROMBIN TIME (PATIENT) 19.2 SEC (9.7-13.0)
[2021-01-23 11:18] LABS: CREATININE 6.1 mg/dL (0.55-1.3)
[2021-01-23] MEDS ORDERED: SODIUM CHLORIDE 250 ML IV STA (11:18)
[2021-01-23 11:19] LABS: ACTIVATED PTT 30.6 SECONDS (25.2-36.5); BILIRUBIN,TOTAL 1.2 mg/dL (0.2-1); TOT PROT 8.8 g/dl (6.4-8.2)
[2021-01-23 11:26] LABS: BLOOD UREA NITROGEN 78.1 mg/dL (7-18)
[2021-01-23 12:59] LABS: ANISOCYTOSIS 0; MACROCYTOSIS 1+; PLATELET ESTIMATE DECREASED
[2021-01-23 13:19] LABS: ANISOCYTOSIS 0; MACROCYTOSIS 0; PLATELET ESTIMATE DECREASED
[2021-01-23] MEDS ORDERED: ACETAMINOPHEN 1000 MG/100 ML VIAL (NON FORMULARY) IVPB PRN (14:49)
[2021-01-23 14:50] VITALS: BP 50/27; PULSE 165; TEMP 102.9
[2021-01-23] MEDS ORDERED: SODIUM CHLORIDE 1,000 ML IV STA (14:53)
[2021-01-23] MEDS: MEROPENEM 500 MG in DEXTROSE 5%-WATER 100 ML IVPB SCH (16:16)
== END 2021-01-23 18:17 | disposition expired | DRG 840 ==
LOC: JER 22:01 → JERBED 23:47 → J6WEST-2 12-28 12:07 → J4W 12-31 15:46 → J7W 01-06 10:57 → J6WEST-2 01-09 21:27 → J7W 01-11 16:54 → J4S 01-20 14:13
PROVIDERS: ADMIT Hospitalist; ATTEND Student in an Organized Health Care Education/Training Program
PROC: 06HN33Z Insertion of Infusion Device into Left Femoral Vein, Percutaneous Approach (ICD-10-PCS; principal; 2020-12-31)
PROC: 06HM33Z Insertion of Infusion Device into Right Femoral Vein, Percutaneous Approach (ICD-10-PCS; 2021-01-01)
PROC: 07DR3ZX Extraction of Iliac Bone Marrow, Percutaneous Approach, Diagnostic (ICD-10-PCS; 2021-01-05)
PROC: 5A1D70Z Performance of Urinary Filtration, Intermittent, Less than 6 Hours Per Day (ICD-10-PCS; 2021-01-11)
PROC: 5A1D70Z Performance of Urinary Filtration, Intermittent, Less than 6 Hours Per Day (ICD-10-PCS; 2021-01-11)
PROC: 5A1D70Z Performance of Urinary Filtration, Intermittent, Less than 6 Hours Per Day (ICD-10-PCS; 2021-01-15)
PROC: 30233R1 Transfusion of Nonautologous Platelets into Peripheral Vein, Percutaneous Approach (ICD-10-PCS; 2021-01-18)
PROC: 30233N1 Transfusion of Nonautologous Red Blood Cells into Peripheral Vein, Percutaneous Approach (ICD-10-PCS; 2021-01-18)
PROC: 5A1D70Z Performance of Urinary Filtration, Intermittent, Less than 6 Hours Per Day (ICD-10-PCS; 2021-01-18)
PROC: 5A1D70Z Performance of Urinary Filtration, Intermittent, Less than 6 Hours Per Day (ICD-10-PCS; 2021-01-20)
DX: C90.00 Multiple myeloma not having achieved remission (principal); J69.0 Pneumonitis due to inhalation of food and vomit; N18.6 End stage renal disease; J96.01 Acute respiratory failure with hypoxia; A41.59 Other Gram-negative sepsis; S22.078A Other fracture of T9-T10 vertebra, initial encounter for closed fracture; N17.9 Acute kidney failure, unspecified; I12.0 Hypertensive chronic kidney disease with stage 5 chronic kidney disease or end stage renal disease; I48.19 Other persistent atrial fibrillation; H53.9 Unspecified visual disturbance; E11.22 Type 2 diabetes mellitus with diabetic chronic kidney disease; E78.5 Hyperlipidemia, unspecified; E11.9 Type 2 diabetes mellitus without complications; G43.909 Migraine, unspecified, not intractable, without status migrainosus; R50.9 Fever, unspecified; H02.409 Unspecified ptosis of unspecified eyelid; H57.03 Miosis; F06.31 Mood disorder due to known physiological condition with depressive features; I48.91 Unspecified atrial fibrillation; E83.52 Hypercalcemia; D70.9 Neutropenia, unspecified; R41.82 Altered mental status, unspecified; K72.90 Hepatic failure, unspecified without coma; S50.11XA Contusion of right forearm, initial encounter; E11.42 Type 2 diabetes mellitus with diabetic polyneuropathy; E83.39 Other disorders of phosphorus metabolism; I25.119 Atherosclerotic heart disease of native coronary artery with unspecified angina pectoris; D69.6 Thrombocytopenia, unspecified; R58 Hemorrhage, not elsewhere classified; R79.1 Abnormal coagulation profile; L89.152 Pressure ulcer of sacral region, stage 2; D64.9 Anemia, unspecified; D25.9 Leiomyoma of uterus, unspecified; M21.372 Foot drop, left foot; E83.59 Other disorders of calcium metabolism; N29 Other disorders of kidney and ureter in diseases classified elsewhere; M51.37 Other intervertebral disc degeneration, lumbosacral region; F43.21 Adjustment disorder with depressed mood; M48.07 Spinal stenosis, lumbosacral region; W18.39XA Other fall on same level, initial encounter; Y92.89 Other specified places as the place of occurrence of the external cause; Z99.3 Dependence on wheelchair; Z79.01 Long term (current) use of anticoagulants; Z99.2 Dependence on renal dialysis; Z86.59 Personal history of other mental and behavioral disorders; Z66 Do not resuscitate
CPT/HCPCS: 20225; 36415; 36430; 70450-TC; 71045-TC-FY; 71250-TC; 72070-TC-FY; 72125-TC; 72128-TC; 72131-TC; 74176-TC; 76000-TC-FY; 76705-TC; 76775-TC; 77074-TC-FY; 80048; 80051; 80053; 81003; 82040; 82140; 82232; 82272; 82306; 82310; 82330; 82436; 82550; 82565; 82607; 82728; 82746; 82784; 82962; 83010; 83540; 83550; 83615; 83690; 83735; 83883; 83970; 84100; 84133; 84155; 84156; 84165; 84166; 84300; 84436; 84439; 84443; 84484; 84540; 84550; 85025; 85027; 85045; 85362; 85379; 85384; 85610; 85651; 85730; 86480; 86803; 86850; 86880; 86900; 86901; 86922; 87040; 87086; 87184; 87205; 87340; 87804; 88300-TC; 88305-TC; 88311-TC; 88313-TC; 93005; 93010; 93306-TC; 93970-TC; 94760; 97116-GP; 99285-25; C9803; G0480; J0131; J0897; J1100; J1447; J1644; J9041; P9034; P9047; P9058; U0003